=== PATIENT | female | born 1960 | race Caucasian/White ===

== ENCOUNTER 2017-02-05 07:45 | Outpatient (CLI) ==
[2017-02-05 08:14] LABS: HEMATOCRIT 43.4 % (37.0-47.0); HEMOGLOBIN 14.8 g/dl (12.0-16.0); MEAN CORPUSCULAR HEMOGLOBIN 32.6 pg (27.0-31.0); MEAN CORPUSCULAR HGB CONC 34.1 (31.8-35.4); MEAN CORPUSCULAR VOLUME 95.6 fl (81.0-99.0); RED BLOOD COUNT 4.54 10^6/ul (4.20-5.40); WHITE BLOOD COUNT 4.06 K/ul (4.6-10.2)
[2017-02-05 08:47] LABS: ALBUMIN 4.2 g/dL (3.4-5.0); ALBUMIN/GLOBULIN RATIO 1.5; BILIRUBIN,TOTAL 1.42 mg/dL (0.00-1.20); BUN/CREATININE RATIO 24.32; CALCIUM 9.6 mg/dL (8.2-10.2); CREATININE 0.74 mg/dL (0.60-1.30); URIC ACID 3.2 mg/dL (2.4-6.0)
== END 2017-02-05 07:46 | disposition home or self-care (01) ==
LOC: LAB 07:45
PROVIDERS: ATTEND Internal Medicine
DX: Z00.00 Encounter for general adult medical examination without abnormal findings (principal)
CPT/HCPCS: 36415; 80053; 80061; 84436; 84443; 84480; 84550; 85027

== ENCOUNTER 2017-02-22 08:01 | Outpatient (CLI) ==
--- NOTE | 2017-02-22 09:31 | CT ---
EXAM: CT abdomen pelvis with contrast HISTORY: Abdominal pain COMPARISON: CT pelvis 02/14/2010 and reports from more recent outside studies. TECHNIQUE: Serial axial images of the abdomen pelvis were performed after 75 mL is of Omnipaque IV c ontrast was administered. Oral contrast was also administered . These were obtained from the lung b ases through the inferior pelvis. FINDINGS: The lung bases are clear. The liver demonstrates multiple low attenuation lesions the largest measuring 0.9 cm in diameter in t he right hepatic lobe with indeterminate Hounsfield units. The number as mildly increased from prior examination in 2009. Is a low attenuation cystic lesion adjacent to the gallbladder. Gallbladder i s unremarkable. The adrenal glands are normal. There is a low attenuation round 1.2 cm lesion in the left kidney with indeterminate Hounsfield units. Additional low attenuation lesion is noted in the right kidney measuring 0.5 cm. There is no hydronephrosis, hydroureter or stone. The spleen is unre markable. The pancreas is unremarkable. The stomach is minimally distended. Small bowel in the abdomen pelvis is unremarkable. The appendix is unremarkable. The colon is nondi stended distally and contains contrast more proximally. The uterus is unremarkable. There is no div erticulosis. There is no free air, free fluid or lymphadenopathy. The osseous structures are unrema rkable. IMPRESSION: 1. No evidence of diverticulitis or diverticulosis is identified. Patient with history of partial c olectomy. 2. Low attenuation lesions in the liver and kidneys are consistent with hepatic cysts reported on ou tside studies.
== END 2017-02-22 08:02 | disposition home or self-care (01) ==
LOC: RAD 08:01
PROVIDERS: ATTEND Internal Medicine
DX: R10.30 Lower abdominal pain, unspecified (principal); R11.0 Nausea; B00.89 Other herpesviral infection